=== PATIENT | male | born 1995 | race African-American/Black ===

== ENCOUNTER 2020-05-22 09:16 | Outpatient (CLI) | payer OTHER ==
[2020-05-22] MEDS ORDERED: GADOBUTROL 7.5 MMOL/7.5 ML VIAL ONE (09:30)
[2020-05-22] MEDS ORDERED: LIDOCAINE 1% 10 ML MDV SUBQ ONE (10:00)
[2020-05-22] MEDS ORDERED: iohexoL-240 10 ML VIAL IVP ONE (10:03)
[2020-05-22] MEDS ORDERED: GADOBUTROL 7.5 MMOL/7.5 ML VIAL IVP ONE (10:04)
--- NOTE | 2020-05-22 10:37 | XRAY Report ---
PROCEDURE: Arthrogram Needle Placement INDICATIONS: PAIN IN RT SHOULDER TECHNIQUE: The indications, alternatives, benefits, risks, and complications of the procedure were explained to the patient. Written informed consent was obtained and placed in the chart. The shoulder was examin ed fluoroscopically and a site for needle placement chosen for entry into the glenohumeral joint from an anterior approach. The skin was prepped and draped in the usual fashion, and 1% lidocaine infilt rated from skin down to joint capsule. A spinal needle was inserted into the glenohumeral joint, and a small amount of iodinated contrast media injected to confirm intra-articular placement of the need le tip. This was followed by approximately 12 mL dilute solution of a gadolinium containing MR contr ast agent. The needle was removed and a dressing was applied. The patient was given postprocedural instructions and sent to the MR suite for MR imaging. FINDINGS: A single fluoroscopic spot image demonstrates intra-articular location of injected iodinated contrast . IMPRESSION: Successful fluoroscopically guided administration of dilute Gadolinium solution into the shoulder lauren middleton for MR arthrogram. Reviewed by: Lamar Chapman MD on 05/22/2020 10:36 AM PDT Approved by: Lamar Chapman MD on 05/22/2020 10:36 AM PDT Station ID: [id number]
--- NOTE | 2020-05-22 13:33 | MRI Report ---
PROCEDURE: Arthrogram Shoulder RT INDICATIONS: PAIN IN RT SHOULDER CONTRAST: 12 mL of dilute intra-articular Gadolinium contrast solution TECHNIQUE: After the administration of 12 mL of dilute intra-articular Gadolinium contrast, oblique coronal T1 a nd T2 spin echo with fat saturation, oblique sagittal T1 spin echo with and without fat saturation, o blique sagittal T2 fast spin echo with fat saturation, axial T1 spin echo with fat saturation through the shoulder. 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 FINDINGS: Image quality: Excellent. Rotator cuff: There is mild supraspinatus and infraspinatus tendinosis. The teres minor tendon is int act. The subscapularis tendon is also intact. There is no significant rotator cuff muscle atrophy. Bones and bursae: There is a small shallow chronic Hill-Sachs lesion in the posterior superior humer al head measuring approximately 17 x 12 x 3 mm. No acute osseous edema is seen. Minimal degenerative changes are seen in the acromioclavicular joint. There is no significant subacromial/subdeltoid bursa l fluid. Capsule and soft tissues: Focal full-thickness cartilage loss is present at the anterior-inferior gl enoid without significant loss of glenoid bone stock. There is tearing of the adjacent anterior infer ior labrum with minimal displacement and an intact periosteal attachment. An additional small nondisp laced tear is seen in the posterior superior labrum. The long head of the biceps tendon demonstrates normal location and morphology. No intra-articular bodies. IMPRESSION: 1. Minimally displaced tear of the anterior inferior glenoid labrum with intact periosteal attachmen t. An additional small nondisplaced tear is seen in the posterior superior labrum. 2. Focal full-thickness cartilage loss at the anterior inferior glenoid without significant loss of glenoid bone stock. 3. Small shallow chronic Hill-Sachs lesion at the posterior superior humeral head measuring 17 x 12 x 3 mm. 4. Mild supraspinatus and infraspinatus tendinosis. Reviewed by: Toy Ocampo MD on 05/22/2020 1:31 PM PDT Approved by: Toy Ocampo MD on 05/22/2020 1:31 PM PDT Station ID: [id number]
== END 2020-05-22 09:17 | disposition home or self-care (01) ==
LOC: DI 09:16
PROVIDERS: ATTEND General Practice
DX: S42.291A Other displaced fracture of upper end of right humerus, initial encounter for closed fracture (principal); M75.81 Other shoulder lesions, right shoulder; M94.211 Chondromalacia, right shoulder
CPT/HCPCS: 23350; 73222; 77002; A9585; Q9966

== ENCOUNTER 2020-07-06 09:55 | Day surgery (SDC) | payer OTHER ==
[~2020-07-06 09:55] MED LIST: cefTRIAXone 2 GM VIAL ONE
[2020-07-06] MEDS ORDERED: LACTATED RINGERS 1,000 ML IV ONE ×2 (10:30→15:50)
--- NOTE | 2020-07-06 10:39 | ANESTHESIA ---
Pre-Anesthesia VS, & Labs - Diagnosis Right Labral Tear - Procedure Shoulder Arthroscopy with SLAP Repair Vital Signs: Temp Pulse Resp BP Pulse Ox 37.5 C 71 16 122/74 100 07/06/20 10:00 07/06/20 10:00 07/06/20 10:00 07/06/20 10:00 07/06/20 10:00 Height: 6 ft 4 in Weight (kg): 88.45 kg Body Mass Index: 23.7 BMI Classification: Healthy weight - NPO >8 hours Home Medications and Allergies Home Medications: Ambulatory Orders No Known Home Medications 07/02/20 No Known Home Medications 07/02/20 Allergies/Adverse Reactions: Allergies Allergy/AdvReac Type Severity Reaction Status Date / Time No Known Drug Allergies Allergy Verified 07/02/20 14:58 Anes History & Medical History - Anesthetic History Anesthesia Complications: reports: No previous complications (Only had STO under sedation) Family history of Anesthesia Complications: Denies Family history of Malignant Hyperthermia: Denies - Medical History Cardiovascular: reports: None Pulmonary: reports: None Gastrointestinal: reports: None Urinary: reports: None Musculoskeletal: reports: Other (Chronic intermittant back pain. Set up for PT.) Endocrine/Autoimmune: reports: None Skin: reports: None Smoking Status: Never smoker Psychosocial: reports: No issues indicated History of Cancer?: No - Surgical History Eyes Ears Nose Throat (EENT): Other (STO) Exam General: Alert, Oriented x3, Cooperative, No acute distress Dental: WNL Mouth Opening: Greater than 4 Fingerbreadths Neck Mobility: Normal Mallampati classification: I Thyromental Distance: greater than 6 cm Respiratory: Lungs clear Cardiovascular: Regular rate Mental/Cognitive Status: Alert/Oriented X3 Plan Anesthesia Type: General, Supraclavicular Block Regional Block: Per Surgeon's request for Post Op pain control Consent for Procedure(s) Verified and Reviewed: Yes Code Status: Attempt Resuscitation ASA classification: 1-Healthy patient Is this case an emergency?: No (Discussed anesthetics. Quetions answered. Consent signed.)
[2020-07-06] MEDS ORDERED: ATROPINE ABBOJECT 1 MG/10 ML SYRINGE IVP PRN (10:42)
[2020-07-06] MEDS ORDERED: ONDANSETRON 4 MG/2 ML VIAL IVP PRN ×2 (10:42→15:57)
[2020-07-06] MEDS ORDERED: HYDROmorphone 0.5 MG/0.5 ML SYRINGE IVP PRN (10:42)
[2020-07-06] MEDS ORDERED: NALOXONE 0.4 MG/ML VIAL IVP PRN (10:42)
[2020-07-06] MEDS ORDERED: METOCLOPRAMIDE 10 MG/2 ML VIAL IVP PRN (10:42)
[2020-07-06] MEDS ORDERED: ePHEDrine 50 MG/ML VIAL IVP PRN (10:42)
[2020-07-06] MEDS ORDERED: MORPHINE 2 MG/ML CARPUJECT IVP PRN (10:42)
[2020-07-06] MEDS ORDERED: fentaNYL 100 MCG/2 ML VIAL IVP PRN (10:42)
[2020-07-06] MEDS ORDERED: LACTATED RINGERS 1,000 ML IV SCH (11:00)
[2020-07-06] MEDS ORDERED: EPINEPHrine 1 MG/ML AMP ONE ×3 (11:01→13:04)
[2020-07-06] MEDS ORDERED: ONDANSETRON 4 MG/2 ML VIAL IVP ONE (12:00)
[2020-07-06] MEDS ORDERED: PROPOFOL 200 MG/20 ML VIAL IVP ONE (12:00)
[2020-07-06] MEDS ORDERED: DEXAMETHASONE 4 MG/ML VIAL IVP ONE (12:00)
[2020-07-06] MEDS ORDERED: fentaNYL 100 MCG/2 ML VIAL IVP ONE (12:00)
[2020-07-06] MEDS ORDERED: MIDAZOLAM 2 MG/2 ML VIAL IVP ONE (12:00)
[2020-07-06] MEDS ORDERED: EPINEPHrine 1 MG/ML AMP IR ONE (13:14)
[2020-07-06] MEDS ORDERED: BUPIVACAINE 0.25% PF 30 ML VIAL SUBQ ONE ×2 (14:55)
[2020-07-06] MEDS ORDERED: BUPIVACAINE 0.25% PF 30 ML VIAL ONE (15:03)
[2020-07-06] MEDS ORDERED: oxyCODONE 5 MG TABLET PO PRN (15:57)
--- NOTE | 2020-07-06 16:07 | OPERATIVE REPORT ---
Operative Report - General Procedure Date: 07/06/20 - Other Other Information/Narrative: Date of Procedure: July 06, 2020 Planned Procedure: Right shoulder arthroscopy, labral repair, possible biceps tenodesis Pre-op diagnosis: Right shoulder instability and labral tear Procedure performed: Right shoulder arthroscopy, labral repair, open subpectoral biceps tenodesis, GLAD debridement, limited intra-articular debridement Post-op diagnosis: Right shoulder instability, anterior inferior labral tear, biceps tendinitis/tearing, anterior GLAD lesion, synovitis Primary Surgeon: DEMETRIS LEE Secondary Surgeon: ZACKARY KUMAR Anesthesia: General endotracheal, interscalene block EBL: 10 ml IMPLANTS: Arthrex knotless suture tack x5, Arthrex fiber tack x1 for biceps tenodesis POSTOPERATIVE PLAN: 0-2 weeks-Sling at all times. Pendulum exercises 5 times per day. 2-6 weeks-Passive range of motion with the following limits: FF to 90, ER to 20, abduction to 90 6-12 weeks-Active range of motion in all planes without limitation. Isometric rotator cuff strengthening is allowed 12-16 weeks-Gradually increase strengthening 16 weeks and beyond-Introduce dynamic activities EXAMINATION UNDER ANESTHESIA: ROM: Forward flexion 180, abduction 180, ABER 90, ABIR 90 Anterior load and shift: 2+ Posterior load and shift: 1+ Inferior sulcus: Negative ARTHROSCOPIC FINDINGS: Rotator interval: Synovitis and fraying in the rotator interval, fraying of the [facility] L Biceps tendon & SLAP: The biceps tendon was longitudinally torn, and there is a type II SLAP lesion. The biceps anchor was probed and felt to be unstable on the superior glenoid Subscapularis: Intact Rotator Cuff: Intact HAGL: None Labrum: The anterior and inferior labrum was somewhat diminutive, there was an unstable crack between the anterior labrum and the glenoid, this was explored and found to propagate to approximately the 7 o'clock position. Posterior labrum was stable to probing. Glenoid Cartilage: There is a large anterior glad lesion near the equator, this was debrided with a sucker shaver and partially covered during the labral repair. Humeral Head Cartilage: Some mild anterior wear, small shallow Hill-Sachs lesion posteriorly. 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 He sustained a dislocation but was able to self-reduce. Since that time he has had multiple instability events. Nonoperative management failed to resolve symptoms. The risks, benefits, and alternatives were discussed. Risks included pain, bleeding, infection, damage to nearby structures, lack of symptom relief, implant complications, stiffness, need for further surgeries, DVT, PE, stroke, and even . He signed a written consent form. PROCEDURE IN DETAIL: The patient was met in the preoperative holding on the day of the procedure. Operative extremity was signed. Consent was verified. he desired to proceed. Regional anesthesia was obtained in the preoperative area. They were brought to the operating room and surrendered to anesthesia. Once general anesthesia was obtained they were placed in the lateral decubitus position with the operative side up. An axillary roll was placed and all bony prominences were well-padded. They were then prepped and draped in the standard sterile fashion. A surgical timeout was held to confirm the patient procedure, identity, procedure, laterality, allergies, images, and antibiotics. All were in agreement we proceeded. Balanced suspension was applied and a standard diagnostic arthroscopy was performed utilizing posterior and anterior superior portal sites. The anterior superior portal site was created under direct visualization. The findings of the diagnostic arthroscopy can be found above. The synovitis and frayed labral tissue were debrided to improve visibility. The biceps tendon was cut using a combination of a meniscal biter and an RF ablation wand. The stump was debrided to the level of the labrum. The frayed labral tissue in the SLAP region was debrided to a stable rim. An anterior mid glenoid portal told just above the subscapularis was established under direct visualization. The camera was shifted to the anterior- superior viewing portal and then the labrum was prepared using a combination of high and low angled elevators, the arthroscopic sucker shaver and the pineapple rasp. The extent of the labral tear was from approximately 3:00 anteriorly near the GLAD lesion progressing inferiorly just past 6:00. The labrum was systematically freed up until it had good mobility and the subscap was visible through the interval between the labrum and the glenoid. The arthroscopic sucker shaver was used to debride residual soft issue in the GLAD lesion as well as to debride the edge of the cartilage to make room for anchor placement. The pineapple rasp was used to debride any remaining soft tissue off the glenoid neck. A posterior percutaneous portal was established using the Arthrex system, and anchors were sequentially placed from approximately 7:00 posterior moving anteriorly. The first anchor was placed at 7 o'clock, and the appropriate suture lasso was used to pass the suture around the capsulolabral tissue. The suture was then secured in knotless fashion with good tension. This process was repeated using the percutaneous portal for the 6 o'clock anchor. These anchors resulted in a nice superior capsular shift, closing down some of the space in the pouch. Anterior anchors were then placed through the mid glenoid portal at approximately the 5:00, 4:00 and 3 o'clock positions. The uppermost anchors were brought slightly more onto the face to help cover the anterior portion of the glenoid lesion. Following repair, there was recreation of good anteroinferior labral bumper. Pictures were taken and then the lateral distraction was removed. The humeral head appeared well centered on the glenoid. Final pictures were taken and the fluid was drained from the shoulder and the cannulas removed. We then turned our attention to the biceps tenodesis, a 5 cm incision was made near the axillary fold centered over the pectoralis major tendon. Electrocautery was used to obtain hemostasis. The fascia was opened with dissection scissors. Blunt digital dissection was used to identify the intertubercular groove just under the pectoralis major tendon. The long head of the biceps tendon was visualized within this interval. The short head of the biceps was retracted with my finger and the right angle was used to deliver the tendon of the long head of the biceps out of the wound. A riggs elevator was used to prepare the groove and a fibertack anchor was placed high in the groove in standard fashion. The biceps tendon was debrided to remove the tenosynovium and the tendon was marked 2cm proximal to the musculotendinous junction. The biceps tendon was then whipstitched using the suture from the fibertack anchor from the 2cm ren, to the musculotendinous junction, and back 2 cm proximal. The suture was tensioned, reducing the tendon into the groove/prepared bed. The tendon was secured with 6 reversing half-hitches with alternating posts. Following fixation there was appropriate tension on the biceps tendon. The suture limbs were cut and the wound was irrigated. The subcutaneous tissue was closed using interrupted 2-0 Vicryl followed by running 3-0 Monocryl in subcuticular fashion. The portal sites were then closed with 3-0 Monocryl buried. Dermabond was applied to the biceps incision followed by ster-strips. Mastisol and Steri- Strips were applied to the portals. 10 mL of quarter percent Marcaine was injected around the biceps tenodesis incision. Xeroform was applied to the portal incisons followed by a sterile dressing and a sling. He was awakened and transferred to the recovery room.
[2020-07-06 17:01] VITALS: BP 125/85
--- NOTE | 2020-07-06 18:05 | ANESTHESIA POST OP EVALUATION ---
Anesthesia Post Eval - Post Anesthesia Eval Vitals: Last Vital Signs Temp 36.2 C L 07/06/20 16:25 Pulse 63 07/06/20 16:55 Resp 17 07/06/20 16:55 BP 125/85 H 07/06/20 16:55 Pulse Ox 96 07/06/20 16:55 CV Function Including HR & BP: positive: Stable Pain Control: positive: Satisfactory Nausea & Vomiting: positive: Negative Mental Status: positive: Baseline Respiratory Status: Airway Patent Hydration Status: Satisfactory
== END 2020-07-06 09:56 | disposition home or self-care (01) ==
LOC: SDS 09:55
PROVIDERS: ATTEND Orthopaedic Surgery
DX: S43.491A Other sprain of right shoulder joint, initial encounter (principal); M75.21 Bicipital tendinitis, right shoulder; S43.431A Superior glenoid labrum lesion of right shoulder, initial encounter; M65.811 Other synovitis and tenosynovitis, right shoulder; S46.811A Strain of other muscles, fascia and tendons at shoulder and upper arm level, right arm, initial encounter; X50.0XXA Overexertion from strenuous movement or load, initial encounter; Y92.84 Military training ground as the place of occurrence of the external cause; Y99.1 Military activity

== ENCOUNTER 2021-05-13 14:22 | Outpatient (CLI) | payer OTHER | END 2021-05-13 14:23 | disposition E | LOC: EMS 14:22 | DX: I46.8 Cardiac arrest due to other underlying condition (principal); S01.83XA Puncture wound without foreign body of other part of head, initial encounter; Y92.009 Unspecified place in unspecified non-institutional (private) residence as the place of occurrence of the external cause ==